=== PATIENT | female | born 1990 | race Caucasian/White ===

== ENCOUNTER 2025-01-17 11:30 | Outpatient (RCR) | payer MEDICAID, SELFPAY ==
--- NOTE | 2025-01-10 11:12 | PTNOTE_ITS ---
PT OP Initial Eval Patient Information Outpatient Physical Therapy Treatment Date: 01/10/25 Visit Reasons: cervicalgia Medical Diagnosis: M54.2 Treatment Dx #1: neck pain Start of Care: 01/10/25 Date of Onset: 1 month ago Smoking Status Smoking Status: Never smoker Initial Assessment Subjective: Pt is 34 yr old argentine speaking female with PMH of RA who reports neck pain and R hand pain with difficulty gripping and moving the digits. Limitations include gripping, driving, opening jars, HH chores such as sweeping and mopping. 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 Pt requires skilled therapy to meet goals and has fair/poor rehab potential due to PMH. Eval followed by HEP printout. 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 Ind with HEP ? 2. Improved B rotation to 80% ? 3. Decreased TTP of lower C/S from mod to min ? 4. Pt will turn head L to R x5 with <=4/10 pain Treatment Plan 1. Manual therapy ? 2. Therex ? 3. Modalities as indicated, mechanical traction, estim, moist heat, ice Frequency and Duration: 2x a week for 12 sessions plus evaluation Certification Dates: 01/10/25 to 04/09/25 Procedure Charges OP PT Eval Mod Complex 30 minutes: Yes
--- NOTE | 2025-01-17 15:39 | PT.ODAYNRPT ---
PT Outpatient Daily Note OP Daily Note Outpatient Physical Therapy Treatment Date: 01/17/25 Visit Reasons: cervicalgia Subjective: Pt has open sores on the back of the neck from acne Objective: See F/S for therex MHP x7' C/S MT: SUNNY Parker UT's x5' Assessment: Pt has good demo of cervical retraction to correct fwd head posture Plan: Continue per POC Length of Time (minutes) of Treatment: 30 Minutes Procedure Charges Therapeutic Exercise 30 minutes: Yes
== END 2025-01-17 23:59 | disposition home or self-care (01) ==
LOC: CPTX 11:30
PROVIDERS: PCP Physician Assistant; Referring Provider Physician Assistant; Visit Provider Physician Assistant
DX: M54.2 Cervicalgia (principal); M79.641 Pain in right hand; M06.9 Rheumatoid arthritis, unspecified
CPT/HCPCS: 97110; 97162

== ENCOUNTER 2025-01-31 11:00 | Outpatient (RCR) | payer MEDICAID, SELFPAY ==
--- NOTE | 2025-01-22 13:35 | PT.ODAYNRPT ---
PT Outpatient Daily Note OP Daily Note Outpatient Physical Therapy Treatment Date: 01/22/25 Visit Reasons: Cervicalgia Subjective: Pt reports she felt better after last PT session. Objective: Please see flow sheet for ther ex list. Assessment: Pt instructed on thoracic extension exercise, pt completed with good tolerance. Worked on posture exercises, pt demonstrates forward head corrects with cues. Plan: Continue with pOC. Length of Time (minutes) of Treatment: 30 Minutes Procedure Charges Therapeutic Exercise 30 minutes: Yes
--- NOTE | 2025-01-25 11:31 | PT.ODAYNRPT ---
PT Outpatient Daily Note OP Daily Note Outpatient Physical Therapy Treatment Date: 01/25/25 Visit Reasons: Cervicalgia Subjective: No new complaints. Objective: Please see flow sheet for ther ex list. Assessment: Pt demonstrates forward head posture, educated pt about sitting posture. Plan: Continue with pOC. Length of Time (minutes) of Treatment: 30 Minutes Procedure Charges Therapeutic Exercise 30 minutes: Yes
--- NOTE | 2025-01-31 13:52 | PT.ODAYNRPT ---
PT Outpatient Daily Note OP Daily Note Outpatient Physical Therapy Treatment Date: 01/31/25 Visit Reasons: Cervicalgia Subjective: Pt notices neck is improving. Objective: Please see flow sheet for ther ex list. Assessment: Pt demonstrates good technique with cervical retraction, moving in desired direction. Plan: Continue with pOC. Length of Time (minutes) of Treatment: 30 Minutes Procedure Charges Therapeutic Exercise 30 minutes: Yes
== END 2025-02-17 23:59 | disposition home or self-care (01) ==
LOC: CPTX 11:00
PROVIDERS: PCP Physician Assistant; Referring Provider Physician Assistant; Visit Provider Physician Assistant
DX: M54.2 Cervicalgia (principal); M79.641 Pain in right hand
CPT/HCPCS: 97110

== ENCOUNTER 2025-02-07 11:50 | Day surgery (SDC) | payer MEDICAID, SELFPAY ==
[2025-02-06 10:52] LABS: HCG Qualitative,Urine Negative
[2025-02-06 11:33] VITALS: BMI 16.0
[2025-02-07] VITALS (12 sets, daily range): BP systolic 88–126; BP diastolic 59–93; PULSE 53–86; RESP 12–20; TEMP 36.5–37; O2SAT 98–100; BMI 16.2
[2025-02-07] MEDS: RINGERS LACTATED 1000 ML 1,000 ML 20 ML IV (13:06)
[2025-02-07] MEDS: RINGERS LACTATED 1000 ML 1,000 ML 125 ML IV (13:25)
--- NOTE | 2025-02-07 14:46 | SUR.PHASEII ---
1446: Pt. wakes to name then drifts back to sleep, vitals stable, breathing unlabored, no signs of distress, no dressing in place, no active bleed noted, report received from MD Patrick and Yasmin CHANG.
[2025-02-07] MEDS: ONDANSETRON INJ 2 MG/ML INJ 2 ML 4 MG IV (15:26)
[2025-02-07] MEDS: PANTOPRAZOLE INJ 40 MG VIAL 80 MG IV (15:27)
[2025-02-07] MEDS: SIMETHICONE 80 MG CHEW 40 MG PO (16:06)
--- NOTE | 2025-02-07 16:44 | SUR.PHASEII ---
1644: Pt. AAOx4, vitals stable, breathing unlabored, no complaint of pain or nausea, no dressing in place, no active bleed noted, gave discharge instructions to the pt. 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 Pt. left with all personal belongings.
== END 2025-02-07 16:44 | disposition home or self-care (01) ==
PROVIDERS: Anesthesiology; PCP Family Medicine; Referring Provider Internal Medicine Gastroenterology; Visit Provider Internal Medicine Gastroenterology
PROC: (CPT 43239; principal; 2025-02-07 12:45)
DX: K29.70 Gastritis, unspecified, without bleeding (principal); K25.9 Gastric ulcer, unspecified as acute or chronic, without hemorrhage or perforation; M06.9 Rheumatoid arthritis, unspecified; Z98.890 Other specified postprocedural states; K31.89 Other diseases of stomach and duodenum; K29.50 Unspecified chronic gastritis without bleeding; Z01.810 Encounter for preprocedural cardiovascular examination
CPT/HCPCS: 43239; 81025; J2405; J2470; J7120; A9270

== ENCOUNTER 2025-03-15 13:30 | Outpatient (RCR) | payer MEDICAID, SELFPAY ==
--- NOTE | 2025-02-19 13:25 | PT.ODAYNRPT ---
PT Outpatient Daily Note OP Daily Note Outpatient Physical Therapy Treatment Date: 02/19/25 Visit Reasons: Cervicalgia Subjective: Less acne recently Objective: See F/S for elie SCRUGGS x7' C/S Assessment: Pt has good demo of cervical retraction to correct fwd head posture Plan: Continue per POC Length of Time (minutes) of Treatment: 30 Minutes Procedure Charges Therapeutic Exercise 30 minutes: Yes
--- NOTE | 2025-02-26 17:42 | PT.ODAYNRPT ---
PT Outpatient Daily Note OP Daily Note Outpatient Physical Therapy Treatment Date: 02/26/25 Visit Reasons: Cervicalgia Subjective: Less neck pain recently Objective: See F/S for elie SCRUGGS x7' C/S Assessment: Pt has good demo of cervical retraction to correct fwd head posture Plan: Continue per POC Length of Time (minutes) of Treatment: 30 Minutes Procedure Charges Therapeutic Exercise 30 minutes: Yes
--- NOTE | 2025-03-05 15:15 | PT.ODAYNRPT ---
PT Outpatient Daily Note OP Daily Note Outpatient Physical Therapy Treatment Date: 03/05/25 Visit Reasons: Cervicalgia Subjective: Pt reports neck is doing better, notices less pain. Objective: Please see flow sheet for ther ex list. Assessment: Progression of interventions completed with good tolerance. Plan: Continue with pOC. Length of Time (minutes) of Treatment: 30 Minutes Procedure Charges Therapeutic Exercise 30 minutes: Yes
--- NOTE | 2025-03-15 15:08 | PT.ODAYNRPT ---
PT Outpatient Daily Note OP Daily Note Outpatient Physical Therapy Treatment Date: 03/15/25 Visit Reasons: Cervicalgia Subjective: Less neck pain recently Objective: See F/S for elie SCRUGGS x7' C/S Assessment: Pt has good demo of cervical retraction to correct fwd head posture Plan: Continue per POC Length of Time (minutes) of Treatment: 30 Minutes Procedure Charges Therapeutic Exercise 30 minutes: Yes
== END 2025-03-19 23:59 | disposition home or self-care (01) ==
LOC: CPTX 13:30
PROVIDERS: PCP Physician Assistant; Referring Provider Physician Assistant; Visit Provider Physician Assistant
DX: M54.2 Cervicalgia (principal); M79.641 Pain in right hand
CPT/HCPCS: 97110

== ENCOUNTER 2025-04-05 14:30 | Outpatient (RCR) | payer MEDICAID, SELFPAY ==
--- NOTE | 2025-03-28 14:25 | PT.ODAYNRPT ---
PT Outpatient Daily Note OP Daily Note Outpatient Physical Therapy Treatment Date: 03/28/25 Visit Reasons: Neck pain Subjective: Less neck pain recently Objective: See F/S for therex MHP x7' C/S MT: SUNNY B UT x5' Assessment: Pt has good demo of cervical retraction to correct fwd head posture Plan: Continue per POC Length of Time (minutes) of Treatment: 30 Minutes Procedure Charges Therapeutic Exercise 30 minutes: Yes
--- NOTE | 2025-04-05 14:37 | PT.ODS1RPT ---
PT OP Progress/Discharge Note Date of Service: 04/05/25 Progress Note/DC Note Progress Note/Discharge Note: DC Note Patient Information Visit Reasons: Neck pain Service Continue Service or Discharge: Discharge Discharge Date: 04/05/25 Status Subjective: Less neck pain recently, it's not hurting today and she is prepared to D/C from therapy Objective: See F/S for therex MHP x7' C/S C/S AROM: Rotation: 90% of full Extension: 50% Flexion: full TTP: min to none of B UT's Sitting posture: with cues she can sit with neutral spine. Assessment: Pt has attended the eval and 10 Rx sessions with good progress to meet therapy goals. She can turn the head side to side x5 with 3/10 neck pain to meet that goal. She has decreased TTP of lower C/S from mod to min and improved B rotation to 80% to meet those goals. Pt has good demo of cervical retraction to correct fwd head posture Plan: D/C with HEP Procedure Charges Therapeutic Exercise 30 minutes: Yes
== END 2025-04-19 23:59 | disposition home or self-care (01) ==
LOC: CPTX 14:30
PROVIDERS: PCP Physician Assistant; Referring Provider Physician Assistant; Visit Provider Physician Assistant
DX: M54.2 Cervicalgia (principal); M79.641 Pain in right hand
CPT/HCPCS: 97110

== ENCOUNTER → 2025-06-19 | Outpatient (CLI) | payer MEDICAID, SELFPAY ==
--- NOTE | 2025-06-19 14:30 | XR_ITS ---
Examination: MRI cervical spine without intravenous contrast Date and time of exam: June 19, 2025, 1458 hours INDICATIONS: Neck pain radiating down both arms numbness and paresthesias in the hands 9 months Technique: Multiple axial and sagittal sections of the cervical spine to been obtained. T2 weighted sagittal sections, TR 3, 270, TE 117 T1-weighted sagittal sections, TR 500, TE 11 T1-weighted axial sections, TR 607, TE 12, axial sections TR 18, TE 27 and T2 weighted transverse sections, TR 3920, TE 122. Findings: Satisfactory alignment cervical vertebral bodies. Mild disc narrowing C4-C5 No fracture Intact odontoid Diffuse cervical disc desiccation C2-C3 no disc protrusion C3-C4 2 mm central subarticular osteophyte disc complex C4-C5 2 mm central subarticular osteophyte disc complex C5-C6 no disc protrusion C6-C7 no disc protrusion C7-T1 no disc protrusion IMPRESSION: Early degenerative disc disease C4-C5 No significant acquired spinal stenosis
== END | disposition home or self-care (01) ==
PROVIDERS: PCP Family Medicine; Referring Provider Physician Assistant; Visit Provider Physician Assistant
DX: M50.321 Other cervical disc degeneration at C4-C5 level (principal)
CPT/HCPCS: 72141